=== PATIENT | female | born 1945 | race Caucasian/White ===

== ENCOUNTER 2018-01-30 07:02 | Day surgery (SDC) | payer MEDICARE, BC ==
[2018-01-29 12:41] LABS: BASOPHILS # (AUTO) 0.1 X10'3 (0-0.2); BASOPHILS % (AUTO) 1.1 % (0-1); EOSINOPHILS # (AUTO) 0.3 X10'3 (0-0.9); EOSINOPHILS % (AUTO) 4.6 % (0-6); HEMATOCRIT 45.8 % (35.0-45.0); HEMOGLOBIN 15.5 g/dl (12.0-16.0); LYMPHOCYTES # (AUTO) 1.5 X10'3 (1.1-4.8); LYMPHOCYTES % (AUTO) 24.9 % (21-51); MEAN CORPUSCULAR HEMOGLOBIN 30.8 PG (27.0-31.0); MEAN CORPUSCULAR HGB CONC 33.9 % (33.0-36.5); MEAN CORPUSCULAR VOLUME 90.9 FL (78-98); MEAN PLATELET VOLUME 9.9 FL (7.4-10.4); MONOCYTES # (AUTO) 0.5 X10'3 (0-0.9); MONOCYTES % (AUTO) 7.5 % (2-12); NEUTROPHILS # (AUTO) 3.7 X10'3 (1.8-7.7); NEUTROPHILS % (AUTO) 61.9 % (42-75); PLATELET COUNT 216 X10'3 (140-440); RED BLOOD COUNT 5.04 X10'6 (4.20-5.60); RED CELL DISTRIBUTION WIDTH 13.9 % (11.5-14.5)
[2018-01-29 12:45] LABS: INR 1.5 INR; PROTHROMBIN TIME 15.7 SECONDS (9.0-12.0)
[2018-01-29 12:48] LABS: ANION GAP 6 (8-16); BLOOD UREA NITROGEN 14 MG/DL (7-18); BUN/CREATININE RATIO 14.6 (6.6-38.0); CALCIUM 8.9 MG/DL (8.5-10.1); CHLORIDE 105 MMOL/L (99-107); CREATININE 0.96 MG/DL (0.40-0.90); GLUCOSE 83 MG/DL (70-104); POTASSIUM 4.2 MMOL/L (3.5-5.1); SODIUM 139 MMOL/L (135-145); TOTAL CARBON DIOXIDE 28.2 MMOL/L (24-32); eGFR 57 ML/MIN
[~2018-01-30] VITALS: Ht 167.6 cm; Wt 72.0 kg
[2018-01-30] VITALS (15 sets, daily range): BP systolic 81–146; BP diastolic 37–82
[~2018-01-30 07:02] MED LIST: CALC-216 PO; CHOL100046 PO; ESZO3TAB32 PO; FLEC100T2 PO; LACT1CAP65 PO; LEVO75TA PO; METO25TA6 PO; MULT-1085 PO; PREVCR VG; RIVA20TA PO; ROSU10TA PO; TRAZ-218 PO; TROS20TA4 PO; UBID300C PO
[2018-01-30] MEDS ORDERED: amiodarone in dextrose, iso-osm 150mg/100ml bag IV ONE (07:20)
[2018-01-30] MEDS ORDERED: morphine 10mg/ml inj. IV ONE (07:20)
[2018-01-30] MEDS ORDERED: atropine 0.1mg/ml 10ml syringe IV ONE (07:20)
[2018-01-30] MEDS ORDERED: MIDAZolam 5mg/ml 2ml vial IV ONE (07:20)
[2018-01-30] MEDS ORDERED: normal saline 1000ml 1,000 ML IV SCH (07:20)
[2018-01-30] MEDS ORDERED: LORazepam 0.5 MG tablet PO ONE (07:20)
[2018-01-30] MEDS ORDERED: diphenhydrAMINE 25mg capsule PO ONE (07:20)
[2018-01-30] MEDS ORDERED: MIRA50TA PO (07:34)
[2018-01-30] MEDS ORDERED: ASPI-611 PO (07:34)
[2018-01-30] MEDS ORDERED: SOTA80TA PO (07:34)
[2018-01-30] MEDS ORDERED: PSYL0.5210 PO (07:34)
[2018-01-30] MEDS ORDERED: LACT1CAP65 PO (07:34)
[2018-01-30] MEDS ORDERED: atropine 0.1mg/ml 10ml syringe ONE (09:23)
== END 2018-01-30 12:07 | disposition home or self-care (01) ==
LOC: SSTAY O 07:02
PROVIDERS: ATTEND Internal Medicine Cardiovascular Disease
DX: I48.1 Persistent atrial fibrillation (principal); I49.5 Sick sinus syndrome; I10 Essential (primary) hypertension; E78.5 Hyperlipidemia, unspecified; I25.10 Atherosclerotic heart disease of native coronary artery without angina pectoris; I25.2 Old myocardial infarction; I95.1 Orthostatic hypotension; E03.9 Hypothyroidism, unspecified; F41.8 Other specified anxiety disorders; G45.4 Transient global amnesia; Z87.442 Personal history of urinary calculi; Z90.710 Acquired absence of both cervix and uterus; Z88.5 Allergy status to narcotic agent; Z86.74 Personal history of sudden cardiac arrest; Z87.440 Personal history of urinary (tract) infections; Z72.89 Other problems related to lifestyle; Z79.891 Long term (current) use of opiate analgesic; Z79.82 Long term (current) use of aspirin; Z88.8 Allergy status to other drugs, medicaments and biological substances; Z79.899 Other long term (current) drug therapy; Z98.890 Other specified postprocedural states
CPT/HCPCS: 36415; 80048; 85025; 85610; 92960; 93005; J0282; J0461; J2250; J2270; J7030; Q0163; A4620

== ENCOUNTER 2022-04-18 10:09 | Outpatient (CLI) | payer MEDICARE, BC ==
[~2022-04-18 10:09] MED LIST changes: +ACET-1 PO; +AMIO200T67 PO; +APIX5TAB3 PO; +ASPI-611 PO; -CALC-216 PO; +CARV3.12 PO; -CHOL100046 PO; -FLEC100T2 PO; -METO25TA6 PO; +MIRA50TA PO; -MULT-1085 PO; -RIVA20TA PO; -ROSU10TA PO; +ROSU10TA2 PO; -TRAZ-218 PO; +TRAZ-251 PO; -TROS20TA4 PO; -UBID300C PO
== END 2022-04-18 23:59 | disposition home or self-care (01) ==
LOC: RT 10:09
PROVIDERS: ATTEND Family Medicine
DX: R94.2 Abnormal results of pulmonary function studies (principal); J98.4 Other disorders of lung; I48.91 Unspecified atrial fibrillation; Z79.899 Other long term (current) drug therapy
CPT/HCPCS: 94010; 94727; 94729

== ENCOUNTER 2023-05-24 06:05 | Day surgery (SDC) | payer MEDICARE, BC ==
[2023-05-23 12:34] LABS: BASOPHILS # (AUTO) 0.1 X10'3 (0-0.2); BASOPHILS % (AUTO) 1.3 % (0-1); EOSINOPHILS # (AUTO) 0.2 X10'3 (0-0.9); EOSINOPHILS % (AUTO) 2.7 % (0-6); HEMATOCRIT 37.8 % (35.0-45.0); HEMOGLOBIN 12.6 g/dl (12.0-16.0); LYMPHOCYTES % (AUTO) 14.6 % (21-51); MEAN CORPUSCULAR HEMOGLOBIN 31.4 PG (27.0-31.0); MEAN CORPUSCULAR HGB CONC 33.4 g/dL (33.0-36.5); MEAN CORPUSCULAR VOLUME 93.9 FL (78-98); MEAN PLATELET VOLUME 9.2 FL (7.4-10.4); MONOCYTES # (AUTO) 0.6 X10'3 (0-0.9); MONOCYTES % (AUTO) 9.7 % (2-12); NEUTROPHILS # (AUTO) 4.8 X10'3 (1.8-7.7); NEUTROPHILS % (AUTO) 71.7 % (42-75); PLATELET COUNT 238 X10'3 (140-440); RED BLOOD COUNT 4.03 X10'6 (4.20-5.60); WHITE BLOOD COUNT 6.7 X10'3 (4.5-11.0)
[2023-05-23 12:44] LABS: ALBUMIN 3.5 G/DL (3.4-5.0); ANION GAP 2 (8-16); BLOOD UREA NITROGEN 13 MG/DL (7-18); BUN/CREATININE RATIO 11.7 (10.0-20.0); CALCIUM 8.8 MG/DL (8.5-10.1); CHLORIDE 105 MMOL/L (99-107); CREATININE 1.11 MG/DL (0.40-0.90); GLUCOSE 108 MG/DL (70-104); POTASSIUM 3.9 MMOL/L (3.5-5.1); SODIUM 139 MMOL/L (135-145); eGFR 47 ML/MIN
[2023-05-23 12:47] LABS: APTT 28 SECONDS (22-32); INR 1.1 INR; PROTHROMBIN TIME 11.4 SECONDS (9.0-12.0)
[~2023-05-24] VITALS: Ht 165.1 cm; Wt 63.6 kg
[2023-05-24] VITALS (11 sets, daily range): BP systolic 120–186; BP diastolic 52–70; PULSE 55–71; RESP 16; TEMP 99.6; O2SAT 90–96
[2023-05-24] MEDS ORDERED: cefazolin 2gm/D5W 100mL 100 ML IV ONE (06:40)
[2023-05-24] MEDS ORDERED: normal saline 1000ml 1,000 ML IV SCH (06:40)
[2023-05-24] MEDS ORDERED: UBID100C16 PO (07:11)
[2023-05-24] MEDS ORDERED: AMIO200T27 PO (07:11)
[2023-05-24] MEDS ORDERED: APIX5TAB3 PO (07:11)
[2023-05-24] MEDS ORDERED: CARV3.122 PO (07:11)
[2023-05-24] MEDS ORDERED: MULT-1085 PO (07:11)
[2023-05-24] MEDS ORDERED: CARV3.126 PO (07:11)
[2023-05-24] MEDS ORDERED: midazolam 1 mg/ML 2ml injection ONE ×2 (07:28→08:13)
[2023-05-24] MEDS ORDERED: fentaNYL/PF 50MCG/1 ML 2ML syringe ONE (07:28)
[2023-05-24] MEDS ORDERED: ceFAZolin 1000mg inj ONE (07:28)
[2023-05-24] MEDS ORDERED: LIDOcaine 1% W/epiNEPHrine 1:100,000 20ml vial ONE (07:28)
[2023-05-24] MEDS ORDERED: vancomycin/NS 1 GM ADD-VANTAGE 250 ML X 1 DOSE IV ONE (11:25)
[2023-05-24] MEDS ORDERED: acetaminophen w/codeine (30MG) #3 tablet PO ONE (12:00)
== END 2023-05-24 14:25 | disposition home or self-care (01) ==
LOC: SSTAY O 06:05
PROVIDERS: ATTEND Internal Medicine Cardiovascular Disease
DX: I49.5 Sick sinus syndrome (principal); I48.0 Paroxysmal atrial fibrillation
CPT/HCPCS: 33208; 36415; 71046; 80048; 85025; 85610; 85730; 93005; 99152; 99153; C1785; C1898; J0690; J2250; J3010; J3370; J3490; J7030; A4565; A6449